=== PATIENT | female | born 1965 | race Caucasian/White ===

== ENCOUNTER 2017-05-27 06:09 | Inpatient (IN) | payer MEDICARE, MEDICAID ==
[2017-05-27] MEDS ORDERED: NS 0.9% 1000 ML* 1,000 ML IV ONE (07:43)
[2017-05-27] MEDS ORDERED: Ondansetron INJ* 2 MG/ML VIAL IV ONE (07:43)
[2017-05-27] MEDS ORDERED: Albuterol/Ipratropium NEB.SOL* Albuterol 2.5 MG/Ipratropium 0.5 MG 3 ML INH ONE ×2 (07:46→10:16)
[2017-05-27 08:12] LABS: Hematocrit 44 % (35-47); Mean Corpuscular HGB Conc 34 g/dl (31-36); Mean Corpuscular Hemoglobin 31 pg (27-31); Mean Corpuscular Volume 91 fL (80-97); Mean Platelet Volume 10 um3 (7.4-10.4); Red Cell Distribution Width 15 % (10.5-15); White Blood Count 5.5 10^3/ul (3.5-10.8)
[2017-05-27 08:22] LABS: Albumin 3.7 g/dL (3.2-5.2); BUN/Creatinine Ratio 24.2 (8-20); C Reactive Protein 19.77 mg/L (< 5.00); Calcium 8.6 mg/dL (8.6-10.3); EGFR African American 120.5 (>60); EGFR Non-African American 93.7 (>60); Potassium 3.9 mmol/L (3.5-5.0); Total Bilirubin 0.6 mg/dL (0.2-1.0); Total Protein 6.7 g/dL (6.4-8.9)
--- NOTE | 2017-05-27 08:50 | RAD ---
INDICATION: Cough and fever COMPARISON: May 14, 2017 TECHNIQUE: PA and lateral dual-energy views were obtained. FINDINGS: Bones/Soft Tissues: There are no acute bony findings. Cardiomediastinal: The cardiomediastinal silhouette is normal. Lungs: There are no infiltrates. Pleura: There are no pleural effusions. Other: None IMPRESSION: NO ACTIVE DISEASE.
[2017-05-27] MEDS ORDERED: methylPREDNISolone 125 MG* 2 ML VIAL IV ONE (10:15)
[2017-05-27] MEDS: Albuterol/Ipratropium NEB.SOL* Albuterol 2.5 MG/Ipratropium 0.5 MG 3 ML INH ONE (10:29)
[2017-05-27] MEDS ORDERED: Albuterol/Ipratropium NEB.SOL* Albuterol 2.5 MG/Ipratropium 0.5 MG 3 ML INH PRN (12:02)
[2017-05-27] MEDS ORDERED: Acetaminophen TAB* 325 MG PO PRN (12:03)
[2017-05-27] MEDS ORDERED: oxyCODONE/Acetamin 5/325 MG* TAB PO PRN (12:03)
[2017-05-27] MEDS ORDERED: Temazepam CAP* 15 MG PO PRN (12:03)
[2017-05-27] MEDS ORDERED: Dextrose 50% Syringe 50 ML* 25 GM/50 ML SYRINGE IV PUSH PRN (12:05)
[2017-05-27] MEDS ORDERED: NS 0.9% 1000 ML* 1,000 ML IV SCH (12:15)
[2017-05-27] MEDS: Nicotine PATCH 21 MG/24 HR* PATCH TRANSDERM SCH (13:23)
[2017-05-27] MEDS: cefTRIAXone VIAL(*) 1,000 MG in NS 0.9% 50 ML* 50 ML IVPB SCH (13:39)
[2017-05-27] MEDS: Heparin VIAL(*) 5000 UNITS/ML VIAL (FIVE THOUSAND) SUBCUT SCH ×2 (13:45→21:18)
--- NOTE | 2017-05-27 13:49 | ED ---
Nadira Quach SooYoung, scribed for German Novoa MD on 05/27/17 at 0716 . Influenza-Like Illness - HPI Summary HPI Summary: A 51 y/o F presents to ED with c/o unproductive cough onset approx 10 days ago. Per , both of them were sick last week, he's improved but she hasn't. Associated sx: decreased oral intake, nausea/vomiting, chills, fever, sinus congestion, diffuse IBANEZ. Denies SOB. Aggravating factors: eating/drinking. Pt recently got her flu shot prior to onset of sx. Alleviating factors: position. PMHx: back pain, aortic bypass. Pt is on Coumadin. 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 Onset/Duration: Gradual Onset, Lasting Weeks - approx 10 days, Still Present Severity: Moderate Associated Signs & Symptoms: Fever, Cough, Nasal Congestion, Headache, Vomiting Related Hx: Smoking - Allergy/Home Medications Allergies/Adverse Reactions: Allergies Allergy/AdvReac Type Severity Reaction Status Date / Time Penicillins [PCN] Allergy Difficulty Verified 05/27/17 09:14 Breathing Aspirin AdvReac Vomiting Verified 05/27/17 09:14 Home Medications: Home Medications metFORMIN* [Glucophage 500 MG TAB *] 500 mg PO BID 05/27/17 [History Confirmed 05/27/17] PMH/Surg Hx/FS Hx/Imm Hx Previously Healthy: No Endocrine/Hematology History: Reports: Hx Diabetes Cardiovascular History: Reports: Hx Aneurysm - Abdominal, Hx Angina, Hx Deep Vein Thrombosis, Hx Hypercholesterolemia, Hx Hypertension, Other Cardiovascular Problems/Disorders - DIABETIC / Denies: Hx Myocardial Infarction Respiratory History: Denies: Hx Chronic Obstructive Pulmonary Disease (COPD) GI History: Reports: Hx Gastroesophageal Reflux Disease, Hx Hiatal Hernia, Other GI Disorders - GERD History: Reports: Other Problems/Disorders - Bladder Sling Denies: Hx Renal Disease Musculoskeletal History: Reports: Hx Fibromyalgia, Other Musculoskeletal History - mild spinal stenosis with bulging disks, degenerative disk disease Sensory History: Reports: Hx Contacts or Glasses, Hx Deafness - Rt ear Opthamlomology History: Reports: Hx Contacts or Glasses Neurological History: Reports: Hx Migraine - Current Admission, Other Neuro Impairments/Disorders - Nerve damage right neck - Surgical History Surgery Procedure, Year, and Place: cholecysectomy. hysterectomy. bladder sling. tonsilectomy and tubes in ears. abdominal aortic bypass Infectious Disease History: No Infectious Disease History: Denies: Traveled Outside the [place] in Last 30 Days - Family History Known Family History: Positive: Diabetes - brother and 2 sisters - Social History Occupation: Disabled Lives: With Family Alcohol Use: None Hx Substance Use: No Substance Use Type: Reports: None Hx Tobacco Use: Yes Smoking Status (MU): Heavy Every Day Tobacco Smoker Type: Cigarettes Review of Systems Positive: Fever, Chills Positive: Other - sinus congestion Positive: Cough. Negative: Shortness Of Breath Positive: Vomiting, Nausea, Other - pos: decreased oral intake Positive: Headache - diffuse All Other Systems Reviewed And Are Negative: Yes Physical Exam - Summary Physical Exam Summary: The patient is well-nourished in no acute distress and in no acute pain. The skin is warm and dry and skin color reflects adequate perfusion. HEENT: The head is normocephalic and atraumatic. The pupils are equal and reactive. The conjunctivae are clear and without drainage. Nares are patent and without drainage. Mouth reveals dry mucous membranes and the throat is without erythema and exudate. The external ears are intact. The ear canals are patent and without drainage. The left TM is scarred. Neck is supple with full range of motion and non-tender. There are no carotid bruits. There is no neck vein distension. Respiratory: Chest is non-tender. Mild, diffuse wheezing. Cardiovascular: Heart is regular rate and rhythm. There is no murmur or rub auscultated. There is no peripheral edema and pulses are symmetrical and equal. Abdomen: The abdomen is soft and non-tender. There are normal bowel sounds heard in all four quadrants and there is no organomegaly palpated. Musculoskeletal: There is no back pain noted. Extremities are non-tender with full range of motion. There is good capillary refill. There is no peripheral edema or calf tenderness elicited. Neurological: Patient is alert and oriented to person, place and time. The patient has symmetrical motor strength in all four extremities. Cranial nerves are grossly intact. Deep tendon reflexes are symmetrical and equal in all four extremities. Psychiatric: The patient has an appropriate affect and does not exhibit any anxiety or depression. Triage Information Reviewed: Yes Vital Signs On Initial Exam: Initial Vitals Temp Pulse Resp BP Pulse Ox 98.2 F 113 18 128/68 89 05/27/17 06:12 05/27/17 06:12 05/27/17 06:12 05/27/17 06:12 05/27/17 06:12 Vital Signs Reviewed: Yes Diagnostics - Vital Signs Vital Signs Temp Pulse Resp BP Pulse Ox 05/27/17 06:12 98.2 F 113 18 128/68 89 - Laboratory Lab Results: Lab Results 05/27/17 05/27/17 05/27/17 Range/Units 07:47 07:47 07:47 WBC 5.5 (3.5-10.8) 10^3/ul RBC 4.80 (4.0-5.4) 10^6/ul Hgb 15.0 (12.0-16.0) g/dl Hct 44 (35-47) % MCV 91 (80-97) fL MCH 31 (27-31) pg MCHC 34 (31-36) g/dl RDW 15 (10.5-15) % Plt Count 127 L (150-450) 10^3/ul MPV 10 (7.4-10.4) um3 Neut % (Auto) 57.9 (38-83) % Lymph % (Auto) 28.1 (25-47) % Mason % (Auto) 12.6 H (1-9) % Eos % (Auto) 0.1 (0-6) % Baso % (Auto) 1.3 (0-2) % Absolute Neuts (auto) 3.2 (1.5-7.7) 10^3/ul Absolute Lymphs (auto) 1.5 (1.0-4.8) 10^3/ul Absolute Monos (auto) 0.7 (0-0.8) 10^3/ul Absolute Eos (auto) 0 (0-0.6) 10^3/ul Absolute Basos (auto) 0.1 (0-0.2) 10^3/ul Absolute Nucleated RBC 0.01 10^3/ul Nucleated RBC % 0.2 INR (Anticoag Therapy) 1.79 H (0.89-1.11) Sodium 135 (133-145) mmol/L Potassium 3.9 (3.5-5.0) mmol/L Chloride 102 (101-111) mmol/L Carbon Dioxide 28 (22-32) mmol/L Anion Gap 5 (2-11) mmol/L BUN 16 (6-24) mg/dL Creatinine 0.66 (0.51-0.95) mg/dL Est GFR ( Amer) 120.5 (>60) Est GFR (Non-Af Amer) 93.7 (>60) BUN/Creatinine Ratio 24.2 H (8-20) Glucose 105 H (70-100) mg/dL Calcium 8.6 (8.6-10.3) mg/dL Total Bilirubin 0.60 (0.2-1.0) mg/dL AST 61 H (13-39) U/L ALT 58 H (7-52) U/L Alkaline Phosphatase 56 (34-104) U/L C-Reactive Protein 19.77 H (< 5.00) mg/L Total Protein 6.7 (6.4-8.9) g/dL Albumin 3.7 (3.2-5.2) g/dL Globulin 3.0 (2-4) g/dL Albumin/Globulin Ratio 1.2 (1-3) Result Diagrams: 05/27/17 07:47 05/27/17 07:47 Lab Statement: Any lab studies that have been ordered have been reviewed, and results considered in the medical decision making process. - Radiology CXR Xray Interpretation: No Acute Changes - IMPRESSION: No active dz. ED physician has reviewed this radiology report and agrees. Radiology Interpretation Completed By: Radiologist Re-Evaluation - Re-Evaluation 1 Re-Evaluation Time: 09:41 Change: Improved Comment: Discussing CXR with pt, pt states feeling better. Flu Symptom Course/Dx - Course Course Of Treatment: Veronica Amaro has had a recent URI and has gotten worse in terms of coughing and feeling general malaise. Her SPO2 on arrival was marginal and did not improve with nebs and solumedrol here. I have asked the hospitalists to admit her. - Diagnoses Provider Diagnoses: Viral syndrome, Bronchitis with bronchospasm, Respiratory insufficiency - Physician Notifications Discussed Care Of Patient With: Marnie Menjivar - hospitalist Time Discussed With Above Provider: 11:34 Instructed by Provider To: Admit As Inpatient Critical Care Time: 30-74 min Discharge - Discharge Plan Condition: Stable Disposition: ADMITTED TO [facility] The documentation as recorded by the Nadira velez SooYoung accurately reflects the service I personally performed and the decisions made by me, German Novoa MD.
[2017-05-27] MEDS: Azithromycin IV(*) 500 MG in NS 0.9% 250 ML* 250 ML IVPB SCH (14:50)
[2017-05-27] MEDS: Warfarin TAB(*) 5 MG PO SCH (17:30)
[2017-05-27] MEDS: Atorvastatin* 40 MG TAB PO SCH (17:30)
[2017-05-27] MEDS: Insulin LISPRO* 1 UNITS UNIT SUBCUT SCH ×2 (17:31→21:18)
[2017-05-27] MEDS: methylPREDNISolone SOD 40 MG* 1 ML VIAL IV SCH (17:31)
[2017-05-27] MEDS: Aspirin Low Dose CHEW TAB* 81 MG PO SCH (17:31)
[2017-05-27] MEDS: Mometasone/Formoter 100/5 MDI INH SCH (19:45)
--- NOTE | 2017-05-27 20:28 | HP ---
CC: Dr. Boudreaux; Dr. Nice * HISTORY AND PHYSICAL: DATE OF ADMISSION: 05/27/17 PRIMARY CARE PROVIDER: Dr. Boudreaux. CHIEF COMPLAINT: Shortness of breath and cough. HISTORY OF PRESENT ILLNESS: Veronica Amaro is a 51-year-old female with history of recently diagnosed COPD, but had not used inhalers at home who presents complaining of cough productive of green sputum, shortness of breath, and wheezing for the past week. The patient stated that initially her had a cold also. The patient's workup was grossly unremarkable. Apart from that, she continued to be hypoxemic whenever she was trying to be ambulated in the emergency department. The patient is going to be placed on overnight observation with the diagnosis of COPD exacerbation and hypoxemia. PAST MEDICAL HISTORY: 1. History of aortoiliac graft in the past. Since then, the patient had been on Coumadin. 2. Gastroesophageal reflux disease. 3. Dyslipidemia. 4. Lower back pain for which the patient is on disability. 5. Hypertension. 6. Hysterectomy. 7. History of bladder sling. 8. Diabetes type 2 recently diagnosed. MEDICATIONS: At home: 1. Metformin 500 mg b.i.d. 2. Warfarin 5 mg daily. 3. Zestril 10 mg daily. 4. Lipitor 40 mg daily. 5. Aspirin 81 mg daily. 6. Omeprazole 40 mg daily. ALLERGIES: Include PENICILLIN that causes anaphylaxis. FAMILY HISTORY: Positive for father with heart disease. Mother with history of "blood clots." SOCIAL HISTORY: The patient has a history of smoking 40 pack years and continues to smoke a pack a day. She denies any alcohol or drug use. She is on disability, lives with her who would be her surrogate. REVIEW OF SYSTEMS: Please see history of present illness. In addition to the above mentioned, the patient stated that she has abdominal hernias after her abdominal surgeries and they "pop out" when she coughs. She denies any abdominal pain. All of the remaining 12 systems were reviewed with the patient and were otherwise negative. PHYSICAL EXAMINATION GENERAL: The patient is a very pleasant 51-year-old obese female who is in no acute distress. Alert, awake, and oriented x3. VITAL SIGNS: Blood pressure 116/54, heart rate 105 and regular, respiratory rate 16, oxygen saturation 95% on 2 L of oxygen nasal cannula, temperature of 98.2. HEENT: Head: Atraumatic, normocephalic. Eyes: Pupils are equal, reactive to light and accommodation. Oropharynx clear. Mucosa moist. NECK: Supple. No JVD. No bruits bilaterally. RESPIRATORY: Diffuse wheezes in bilateral entire lung castanon. CARDIOVASCULAR: Regular rate and rhythm, no murmur. ABDOMEN: Soft and nontender. Bowel sounds are present in all 4 quadrants. EXTREMITIES: There is no edema. Pulses are +2 bilaterally. No clubbing or cyanosis. NEUROLOGIC EVALUATION: Speech is clear. Cranial nerves II through XII grossly intact. Motor strength is 5/5 bilaterally. SKIN: No ecchymotic areas or rashes noted. LABORATORY DATA/DIAGNOSTIC STUDIES: Laboratory data showed a white blood cell count of 5.5, hemoglobin 15.0, hematocrit 44, and platelets of 127,000. Sodium is 135, potassium 3.9, chloride 102, carbon dioxide 28, BUN 16, creatinine 0.66. Liver function showed mild elevation with AST of 61 and ALT of 58. C- reactive protein was 19. Portable chest x-ray, impression: "No active disease." ASSESSMENT AND PLAN: 1. Mrs. Amaro is a 51-year-old female who is currently smoking with a history of peripheral vascular disease and at least [id number] chronic obstructive pulmonary disease diagnosed by Dr. Nice during pulmonary function test in August 2016. 2. For hypoxemia and chronic obstructive pulmonary disease exacerbation, the patient is going to be placed on observation, supplementation with oxygen, as well as treated with Solu-Medrol and antibiotics for bronchitis. 3. For diabetes, the patient's Glucophage is going to be held and she is going to be placed on sliding scale. 4. The patient's INR is supratherapeutic and she stated that she is taking the Coumadin for her vascular bypass. I will continue her Coumadin 5 mg daily and recheck INR in the morning. Most likely, her INR will increase on current antibiotic treatment. 5. For her dyslipidemia, the patient is going to be continued on Lipitor. 6. For DVT prophylaxis, the patient is on Coumadin, which is going to be continued. 7. The patient's code status is full and her surrogate is her . TIME SPENT: Approximately 62 minutes were spent on admission of this patient, more than half of that time was spent [id number] with the patient during the interview and physical exam. [id number]/[facility] #: [id number] JAYESH
[2017-05-28] MEDS: methylPREDNISolone SOD 40 MG* 1 ML VIAL IV SCH ×3 (01:31→17:44)
[2017-05-28] MEDS: Heparin VIAL(*) 5000 UNITS/ML VIAL (FIVE THOUSAND) SUBCUT SCH ×3 (05:35→21:20)
[2017-05-28 06:59] LABS: Hematocrit 42 % (35-47); Hemoglobin 14.2 g/dl (12.0-16.0); Mean Corpuscular HGB Conc 34 g/dl (31-36); Mean Corpuscular Hemoglobin 31 pg (27-31); Mean Corpuscular Volume 93 fL (80-97); Mean Platelet Volume 11 um3 (7.4-10.4); Red Blood Count 4.54 10^6/ul (4.0-5.4); Red Cell Distribution Width 15 % (10.5-15); White Blood Count 7.5 10^3/ul (3.5-10.8)
[2017-05-28 07:18] LABS: Albumin 3.4 g/dL (3.2-5.2); Calcium 8.7 mg/dL (8.6-10.3); Direct Bilirubin 0.1 mg/dL (0.03-0.18); EGFR African American 148.7 (>60); EGFR Non-African American 115.6 (>60); Globulin 2.9 g/dL (2-4); Indirect Bilirubin 0.2 mg/dL (0.3-1.0); Potassium 4.2 mmol/L (3.5-5.0); Total Bilirubin 0.3 mg/dL (0.2-1.0); Total Protein 6.3 g/dL (6.4-8.9)
[2017-05-28] MEDS: Omeprazole CAP* 20 MG PO SCH (08:15)
[2017-05-28] MEDS: Lisinopril TAB* 10 MG PO SCH (08:15)
[2017-05-28] MEDS: Insulin LISPRO* 1 UNITS UNIT SUBCUT SCH ×4 (08:22→21:19)
[2017-05-28] MEDS: Mometasone/Formoter 100/5 MDI INH SCH ×2 (08:29→21:35)
[2017-05-28 08:42] LABS: BUN/Creatinine Ratio 21.8 (8-20)
[2017-05-28] MEDS: Nicotine PATCH 21 MG/24 HR* PATCH TRANSDERM SCH (08:51)
--- NOTE | 2017-05-28 11:57 | PN ---
Subjective Date of Service: 05/28/17 Interval History: Pt still wheezes and coughs Objective Active Medications: Acetaminophen (Tylenol Tab*) 650 mg PO Q4H PRN PRN Reason: FEVER/PAIN Albuterol/Ipratropium (Duoneb (Albuterol 2.5 Mg/Ipratropium 0.5 Mg)) 1 neb INH Q6H PRN PRN Reason: SOB/WHEEZING Aspirin (Aspirin Low Dose Tab*) 81 mg PO QPM [facility] Last Admin: 05/27/17 17:31 Dose: 81 mg Atorvastatin Calcium (Lipitor*) 40 mg PO QPM [facility] Last Admin: 05/27/17 17:30 Dose: 40 mg Dextrose (D50w Syringe 50 Ml*) 12.5 gm IV PUSH .FOR FS < 60 - SS PRN PRN Reason: FS < 60 Heparin Sodium (Porcine) (Heparin Vial(*)) 5,000 units SUBCUT Q8HR [facility] Last Admin: 05/28/17 05:35 Dose: 5,000 units Ceftriaxone Sodium 1,000 mg/ (Sodium Chloride) 50 mls @ 200 mls/hr IVPB Q24H [facility] Last Admin: 05/27/17 13:39 Dose: 200 mls/hr Azithromycin 500 mg/ Sodium (Chloride) 250 mls @ 250 mls/hr IVPB Q24H [facility] Last Admin: 05/27/17 14:50 Dose: 250 mls/hr Sodium Chloride (Ns 0.9% 1000 Ml*) 1,000 mls @ 100 mls/hr IV PER RATE [facility] Last Admin: 05/27/17 13:39 Dose: 100 mls/hr Insulin Human Lispro (Humalog*) 0 units SUBCUT ACHS [facility] PRN Reason: Protocol Last Admin: 05/28/17 08:22 Dose: 4 units Lisinopril (Prinivil Tab*) 10 mg PO DAILY [facility] Last Admin: 05/28/17 08:15 Dose: 10 mg Methylprednisolone Sodium Succinate (Solu-Medrol 40 Mg) 40 mg IV Q8H [facility] Last Admin: 05/28/17 11:08 Dose: 40 mg Mometasone Furoate/Formoterol Fumar (Dulera 100/5 Mdi*) 2 puff INH BID [facility] Last Admin: 05/28/17 08:29 Dose: 2 puff Nicotine (Nicotine Patch 21 Mg/24 Hr*) 1 patch TRANSDERM DAILY [facility] Last Admin: 05/28/17 08:51 Dose: Not Given Omeprazole (Prilosec Cap*) 40 mg PO DAILY@0730 [facility] Last Admin: 05/28/17 08:15 Dose: 40 mg Oxycodone/Acetaminophen (Percocet 5/325 Tab*) 1 tab PO Q4H PRN PRN Reason: Pain Temazepam (Restoril Cap*) 15 mg PO BEDTIME PRN PRN Reason: INSOMNIA Warfarin Sodium (Coumadin Tab(*)) 5 mg PO DAILY@1700 [facility] PRN Reason: Protocol Last Admin: 05/27/17 17:30 Dose: 5 mg Vital Signs 05/27/17 05/27/17 05/27/17 12:00 12:51 13:00 Temperature 98.2 F Pulse Rate 108 103 Respiratory 18 18 Rate Blood Pressure 109/81 123/50 (mmHg) O2 Sat by Pulse 91 93 Oximetry 05/27/17 05/27/17 05/27/17 15:18 19:42 23:13 Temperature 98.0 F 97.5 F 97.8 F Pulse Rate 104 78 70 Respiratory 18 18 16 Rate Blood Pressure 108/38 113/60 115/44 (mmHg) O2 Sat by Pulse 96 95 95 Oximetry 05/28/17 05/28/17 05/28/17 03:35 07:15 08:31 Temperature 97.9 F 97.5 F Pulse Rate 59 72 71 Respiratory 16 18 16 Rate Blood Pressure 116/62 117/52 (mmHg) O2 Sat by Pulse 95 97 95 Oximetry 05/28/17 10:15 Temperature Pulse Rate Respiratory 18 Rate Blood Pressure (mmHg) O2 Sat by Pulse Oximetry Oxygen Devices in Use Now: Nasal Cannula - at 2L Appearance: 51yo f in NAD, AAOx3 Eyes: No Scleral Icterus, PERRLA Ears/Nose/Mouth/Throat: NL Teeth, Lips, Gums, Mucous Membranes Moist Neck: NL Appearance and Movements; NL JVP, Trachea Midline Respiratory: Symmetrical Chest Expansion and Respiratory Effort, - - diffuse b/ l wheezes Cardiovascular: NL Sounds; No Murmurs; No JVD, RRR Abdominal: NL Sounds; No Tenderness; No Distention, No Hepatosplenomegaly Lymphatic: No Cervical Adenopathy Extremities: No Edema Skin: No Rash or Ulcers, No Nodules or Sclerosis Neurological: Alert and Oriented x 3, NL Muscle Strength and Tone Result Diagrams: 05/28/17 06:15 05/28/17 06:15 Additional Lab and Data: Lab Results 05/27/17 05/27/17 05/27/17 Range/Units 07:47 07:47 07:47 WBC 5.5 (3.5-10.8) 10^3/ul RBC 4.80 (4.0-5.4) 10^6/ul Hgb 15.0 (12.0-16.0) g/dl Hct 44 (35-47) % MCV 91 (80-97) fL MCH 31 (27-31) pg MCHC 34 (31-36) g/dl RDW 15 (10.5-15) % Plt Count 127 L (150-450) 10^3/ul MPV 10 (7.4-10.4) um3 Neut % (Auto) 57.9 (38-83) % Lymph % (Auto) 28.1 (25-47) % [place] % (Auto) 12.6 H (1-9) % Eos % (Auto) 0.1 (0-6) % Baso % (Auto) 1.3 (0-2) % Absolute Neuts (auto) 3.2 (1.5-7.7) 10^3/ul Absolute Lymphs (auto) 1.5 (1.0-4.8) 10^3/ul Absolute Monos (auto) 0.7 (0-0.8) 10^3/ul Absolute Eos (auto) 0 (0-0.6) 10^3/ul Absolute Basos (auto) 0.1 (0-0.2) 10^3/ul Absolute Nucleated RBC 0.01 10^3/ul Nucleated RBC % 0.2 INR (Anticoag Therapy) 1.79 H (0.89-1.11) Sodium 135 (133-145) mmol/L Potassium 3.9 (3.5-5.0) mmol/L Chloride 102 (101-111) mmol/L Carbon Dioxide 28 (22-32) mmol/L Anion Gap 5 (2-11) mmol/L BUN 16 (6-24) mg/dL Creatinine 0.66 (0.51-0.95) mg/dL Est GFR ( Amer) 120.5 (>60) Est GFR (Non-Af Amer) 93.7 (>60) BUN/Creatinine Ratio 24.2 H (8-20) Glucose 105 H (70-100) mg/dL Calcium 8.6 (8.6-10.3) mg/dL Total Bilirubin 0.60 (0.2-1.0) mg/dL AST 61 H (13-39) U/L ALT 58 H (7-52) U/L Alkaline Phosphatase 56 (34-104) U/L C-Reactive Protein 19.77 H (< 5.00) mg/L Total Protein 6.7 (6.4-8.9) g/dL Albumin 3.7 (3.2-5.2) g/dL Globulin 3.0 (2-4) g/dL Albumin/Globulin Ratio 1.2 (1-3) Assess/Plan/Problems-Billing Assessment: 51 yo F with h/o PAD(s/p aorto-illiac bypass - on coumadin), COPD, HTN, DM2 presents with COPD exacerbation - Patient Problems (1) COPD exacerbation Comment: Still with significant bronchospasm. Cont Solu Medrol, Ceftriaxone/ Azithro will require at least one more hospital day stay (2) HTN (hypertension) Comment: Contiue Lisinopril (3) GERD (gastroesophageal reflux disease) Comment: Continue home PPI (4) DM2 (diabetes mellitus, type 2) Comment: restarting metformin, cont ISS (5) S/P aortic bifurcation bypass graft Comment: cont coumadin, INR therapeutic (6) DVT prophylaxis Comment: Coumadin Status and Disposition: OBV changed to inpatient
[2017-05-28] MEDS: cefTRIAXone VIAL(*) 1,000 MG in NS 0.9% 50 ML* 50 ML IVPB SCH (12:07)
[2017-05-28] MEDS: Azithromycin IV(*) 500 MG in NS 0.9% 250 ML* 250 ML IVPB SCH (12:51)
[2017-05-28] MEDS: Warfarin TAB(*) 5 MG PO SCH (17:44)
[2017-05-28] MEDS: Atorvastatin* 40 MG TAB PO SCH (17:44)
[2017-05-28] MEDS: Aspirin Low Dose CHEW TAB* 81 MG PO SCH (17:44)
[2017-05-28] MEDS: metFORMIN* 500 MG TAB PO SCH (21:19)
[2017-05-29] MEDS: methylPREDNISolone SOD 40 MG* 1 ML VIAL IV SCH ×2 (03:17→11:50)
[2017-05-29] MEDS: Heparin VIAL(*) 5000 UNITS/ML VIAL (FIVE THOUSAND) SUBCUT SCH (05:17)
[2017-05-29] MEDS: Mometasone/Formoter 100/5 MDI INH SCH (08:07)
[2017-05-29] MEDS: Omeprazole CAP* 20 MG PO SCH (08:24)
[2017-05-29] MEDS: Insulin LISPRO* 1 UNITS UNIT SUBCUT SCH ×2 (08:25→12:59)
[2017-05-29] MEDS: Lisinopril TAB* 10 MG PO SCH (08:25)
[2017-05-29] MEDS: metFORMIN* 500 MG TAB PO SCH (08:25)
[2017-05-29 08:56] VITALS: BP 120/69
[2017-05-29] MEDS: Nicotine PATCH 21 MG/24 HR* PATCH TRANSDERM SCH (08:59)
--- NOTE | 2017-05-30 02:15 | DS ---
CC: Dr. Nice; Dr. Mayo Tristan * DISCHARGE SUMMARY: DATE OF ADMISSION: 05/27/17 DATE OF DISCHARGE: 05/29/17 PRIMARY CARE PROVIDER: Dr. Mayo Tristan. DISCHARGE DIAGNOSIS: Hypoxemia due to COPD exacerbation with bronchitis. SECONDARY DIAGNOSES: 1. History of diabetes type 2. 2. History of smoking. 3. Hypertension. 4. History of status post aortic bifurcation bypass graft, on Coumadin. MEDICATIONS: At discharge include: 1. Albuterol inhaler 1 puff every 4 hours p.r.n. 2. Aspirin 81 mg daily. 3. Azithromycin 250 mg daily for 2 days total. 4. Keflex 500 mg 3 times a day for 5 days total. 5. Advair 230/21 one puff b.i.d. 6. Lipitor 40 mg daily. 7. Lisinopril 20 mg daily. 8. Metformin 500 mg b.i.d. 9. Prilosec 40 mg daily. 10. Prednisone 40 mg daily for 3 days, then stop. 11. Coumadin 5 mg, to restart on 05/31/17, with a repeat INR on 06/04/17. LABORATORY DATA: On the day of discharge showed INR of 3.44. HOSPITALIZATION COURSE: Veronica Amaro is a 51-year-old female with history of smoking, who presented to the hospital complaining of coughing, shortness of breath, and wheezing. She was diagnosed with COPD exacerbation, placed initially under observation, but continued to have severe bronchospasm and then she was admitted. She was treated with intravenous Solu-Medrol, ceftriaxone, and azithromycin. She did very well and by the time of discharge she is oxygenating with O2 sat of 92% on room air. She is going to be discharged home on albuterol, Advair for inhalers. She also is going to be continued with Keflex and azithromycin. Her INR was supratherapeutic on the day of discharge and her Coumadin was recommended to be stopped for a couple of days and then restarted with repeat INR on 06/04/17. PHYSICAL EXAMINATION: At the time of discharge, blood pressure of 120/69, heart rate of 74 and regular, respiratory rate 19, oxygen saturation 92% on room air, temperature 97.8. General appearance: This is a very pleasant 51- year-old female who is in no acute distress, alert, awake, and oriented x3. HEENT: Head atraumatic and normocephalic. Eyes: Pupils are equal, round, and reactive to light and accommodation. Oropharynx clear. Mucosa moist. Neck: Supple. No JVD, no bruits bilaterally. Cardiovascular: Regular rate and rhythm. No murmur. Respiratory: Wheezes in bilateral mid lungs, much improved from prior. Abdomen: Soft, nontender. Bowel sounds present in all quadrants. Extremities: There is no edema. Pulses +2 bilaterally. No clubbing or cyanosis. Neuro Evaluation: Speech clear. Cranial nerves II through XII are grossly intact. Motor strength is 5/5 bilaterally. Please note that this is a short summary of the patient's hospitalization. Please refer to further medical records for details. TIME SPENT: Approximately 35 minutes were spent on the patient's discharge. [id number]/[facility] #: [id number] JAYESH
== END 2017-05-29 13:20 | disposition home or self-care (01) | DRG 192 ==
LOC: ED 06:09 → MED 11:47 → OBSVTOIN 05-28 11:57
PROVIDERS: ADMIT Internal Medicine; ATTEND Internal Medicine
DX: J44.1 Chronic obstructive pulmonary disease with (acute) exacerbation (principal); E11.51 Type 2 diabetes mellitus with diabetic peripheral angiopathy without gangrene; J20.9 Acute bronchitis, unspecified; J44.0 Chronic obstructive pulmonary disease with (acute) lower respiratory infection; R09.02 Hypoxemia; I10 Essential (primary) hypertension; K21.9 Gastro-esophageal reflux disease without esophagitis; E78.5 Hyperlipidemia, unspecified; M54.5 Low back pain; Z79.01 Long term (current) use of anticoagulants; Z79.84 Long term (current) use of oral hypoglycemic drugs; Z79.82 Long term (current) use of aspirin; Z79.899 Other long term (current) drug therapy; Z88.0 Allergy status to penicillin; Z82.49 Family history of ischemic heart disease and other diseases of the circulatory system; F17.210 Nicotine dependence, cigarettes, uncomplicated
CPT/HCPCS: 36415; 71020; 80048; 80053; 80076; 85025; 85610; 86140; 94640; 94760; A9270-GY; G0378; J0456; J0696; J1644; J2405; J2920; J2930